=== PATIENT | female | born 1985 | race African-American/Black ===

== ENCOUNTER 2018-12-23 09:20 | Emergency (ER) | payer MEDICAID ==
[~2018-12-23] VITALS: Ht 172.7 cm; Wt 68.3 kg
[2018-12-23 10:19] LABS: CHLORIDE 110 mEq/L (98-107)
[2018-12-23 10:23] LABS: KETONES URINE TRACE (NEGATIVE); LEUKOCYTE ESTERASE URINE 1+ (NEGATIVE); NITRITE URINE NEGATIVE (NEGATIVE); OCCULT BLOOD URINE 3+ (NEGATIVE); PROTEIN URINE 3+ (NEGATIVE); SPECIFIC GRAVITY URINE 1.009 (1.005-1.030)
[2018-12-23 10:24] LABS: CLARITY URINE TURBID (CLEAR); COLOR URINE BLOODY (YELLOW)
[2018-12-23 10:34] LABS: BASOPHILS % 1.2 % (0.0-2.0); EOSINOPHILS % 1.1 % (0.0-5.0); LYMPHOCYTES % 31.1 % (20.0-50.0); MEAN CORPUSCULAR HEMOGLOBIN 32.5 pg (28.0-32.0); MEAN CORPUSCULAR VOLUME 89.1 fL (81.0-99.0); MEAN PLATELET VOLUME 7.9 fl (7.4-10.4); MONOCYTES % 13.4 % (2.0-8.0); NEUTROPHILS % 53.2 % (40.0-76.0); PLATELET 267 x1000/uL (130-400); RED BLOOD CELL COUNT 1.85 mill/uL (4.2-5.4); RED CELL DISTRIBUTION WIDTH 22.7 % (11.6-14.6)
[2018-12-23 10:41] LABS: HEMATOCRIT. 16.5 % (36.0-48.0)
[2018-12-23 10:48] LABS: B-HCG QUANTITATIVE 17500 mIU/mL (<3)
[2018-12-23 11:21] LABS: PLATELET ESTIMATE NORMAL
[2018-12-23 16:40] VITALS: BP 100/60
== END 2018-12-23 16:43 | disposition home or self-care (01) ==
LOC: ER 09:20
DX: O20.0 Threatened abortion (principal); O23.31 Infections of other parts of urinary tract in pregnancy, first trimester; Z3A.01 Less than 8 weeks gestation of pregnancy; Z88.6 Allergy status to analgesic agent; Z98.890 Other specified postprocedural states
CPT/HCPCS: 36415; 76801; 76817; 80053; 81003; 81025; 84702; 85025; 86850; 86900; 86901; 87086; 93005; 99284; Z7610

== ENCOUNTER 2021-01-16 09:32 | Inpatient (IN) | payer MEDICAID ==
[~2021-01-16] VITALS: Ht 172.7 cm; Wt 62.6 kg
[2021-01-16] MEDS ORDERED: ACETAMINOPHEN 325MG TABLET PO STA (10:08)
[2021-01-16] MEDS ORDERED: SODIUM CHLORIDE 0.9% 1000ML BAG (SEPSIS BOLUS) IV ONE (10:15)
[2021-01-16] MEDS ORDERED: KETOROLAC 15MG/ML VIAL IV ONE (10:15)
[2021-01-16 10:57] LABS: HEMATOCRIT. 22.6 % (36.0-48.0); HEMOGLOBIN. 8.3 g/dL (12.0-16.0); MEAN CORPUSCULAR HEMOGLOBIN 31.9 pg (28.0-32.0); MEAN CORPUSCULAR VOLUME 86.6 fL (81.0-99.0); MEAN PLATELET VOLUME 7.9 fl (7.4-10.4); PLATELET 290 x1000/uL (130-400); RED BLOOD CELL COUNT 2.61 mill/uL (4.2-5.4); RED CELL DISTRIBUTION WIDTH 22.9 % (11.6-14.6)
[2021-01-16 11:03] LABS: CHLORIDE 110 mEq/L (98-107)
[2021-01-16 11:05] LABS: INR 1.1; PROTHROMBIN TIME 11.5 sec (9.6-11.0)
[2021-01-16 11:06] LABS: ETHANOL BLOOD < 10 mg/dL
[2021-01-16 11:10] LABS: HCG SCREEN NEGATIVE
[2021-01-16] MEDS ORDERED: HYDROCODONE/ACETAMINOPHEN 5/325MG TABLET PO ONE (11:30)
[2021-01-16] MEDS ORDERED: HYDROMORPHONE HCL/PF 2MG/ML CPJ IV ONE ×2 (11:45→12:15)
[2021-01-16 12:15] LABS: PLATELET ESTIMATE NORMAL
[2021-01-16] MEDS ORDERED: HYDROMORPHONE HCL/PF 2MG/ML CPJ IV SCH (13:45)
[2021-01-16] MEDS ORDERED: KETOROLAC 15MG/ML VIAL IV SCH (13:45)
[2021-01-16] MEDS ORDERED: MAGNESIUM/ALUMINUM HYDROXIDE/SIMETHICONE 30ML UDC PO PRN (18:00)
[2021-01-16] MEDS ORDERED: NA PHOS,M-B/NA PHOS,DI-BA ENEMA 118ML PR PRN (18:00)
[2021-01-16] MEDS ORDERED: CLONIDINE 0.1MG TABLET PO PRN (18:00)
[2021-01-16] MEDS ORDERED: HYDROMORPHONE HCL/PF 2MG/ML CPJ IV NR (18:00)
[2021-01-16] MEDS ORDERED: OXYCODONE HCL/ACETAMINOPHEN 5/325MG TABLET PO PRN (18:00)
[2021-01-16] MEDS: DEXT 5%/0.45% NACL 1000ML 1,000 ML IV SCH (18:29)
[2021-01-16] MEDS: ENOXAPARIN 40MG/0.4ML SYR SUBCUT SCH (18:29)
[2021-01-16 18:49] LABS: CLARITY URINE CLEAR (CLEAR); COLOR URINE YELLOW (YELLOW); KETONES URINE NEGATIVE (NEGATIVE); LEUKOCYTE ESTERASE URINE TRACE (NEGATIVE); NITRITE URINE NEGATIVE (NEGATIVE); OCCULT BLOOD URINE TRACE (NEGATIVE); PH URINE 5.5 (4.5-8.0); PROTEIN URINE TRACE (NEGATIVE); SPECIFIC GRAVITY URINE 1.012 (1.005-1.030)
[2021-01-16 19:00] LABS: *AMPHETAMINES SCREEN URINE NEGATIVE (NEGATIVE); *BARBITURATES SCREEN URINE NEGATIVE (NEGATIVE); *BENZODIAZEPINES SCREEN URINE NEGATIVE (NEGATIVE); *COCAINE SCREEN URINE NEGATIVE (NEGATIVE); METHADONE URINE SCREEN NEGATIVE (NEGATIVE)
[2021-01-16] MEDS: ONDANSETRON HCL 4MG/2ML INJ IV PRN (19:00)
[2021-01-16 19:02] LABS: CANNABINOID URINE SCREEN PRESUMTIVE POSITIVE (NEGATIVE); OPIATES URINE SCREEN PRESUMTIVE POSITIVE (NEGATIVE); PHENCYCLIDINE URINE SCREEN NEGATIVE (NEGATIVE)
[2021-01-16] MEDS: HYDROMORPHONE HCL/PF 2MG/ML CPJ IV PRN ×2 (20:08→22:49)
[2021-01-16 22:00] VITALS: BP 110/69
[2021-01-16] MEDS: OXYCODONE HCL/ACETAMINOPHEN 5/325MG TABLET PO PRN (23:22)
[2021-01-17] VITALS (7 sets, daily range): BP systolic 81–112; BP diastolic 38–63
[2021-01-17] MEDS: HYDROMORPHONE HCL/PF 2MG/ML CPJ IV PRN ×5 (01:32→18:05)
[2021-01-17] MEDS ORDERED: IBUP-2029 PO (02:05)
[2021-01-17] MEDS ORDERED: FOLI0.4T6 PO (02:05)
[2021-01-17] MEDS ORDERED: HYDR-4001 MT (02:05)
[2021-01-17] MEDS: DEXT 5%/0.45% NACL 1000ML 1,000 ML IV SCH ×2 (03:33→17:33)
[2021-01-17] MEDS: OXYCODONE HCL/ACETAMINOPHEN 5/325MG TABLET PO PRN ×3 (04:21→21:37)
[2021-01-17 06:03] LABS: BASOPHILS % 0.8 % (0.0-2.0); EOSINOPHILS % 0.9 % (0.0-5.0); HEMATOCRIT. 21.9 % (36.0-48.0); HEMOGLOBIN. 7.8 g/dL (12.0-16.0); LYMPHOCYTES % 14.1 % (20.0-50.0); MEAN CORPUSCULAR HEMOGLOBIN 30.6 pg (28.0-32.0); MEAN CORPUSCULAR VOLUME 86.3 fL (81.0-99.0); MEAN PLATELET VOLUME 8.1 fl (7.4-10.4); MONOCYTES % 9.6 % (2.0-8.0); NEUTROPHILS % 74.6 % (40.0-76.0); PLATELET 237 x1000/uL (130-400); RED BLOOD CELL COUNT 2.54 mill/uL (4.2-5.4); RED CELL DISTRIBUTION WIDTH 22.4 % (11.6-14.6)
[2021-01-17 06:06] LABS: CHLORIDE 108 mEq/L (98-107)
[2021-01-17 06:15] LABS: HDL CHOLESTEROL 37 mg/dL (40-59)
[2021-01-17 06:16] LABS: LDL CHOLESTEROL 78 mg/dL (5-100)
[2021-01-17] MEDS ORDERED: ACETAMINOPHEN 325MG TABLET PO PRN (09:15)
[2021-01-17] MEDS: CEFTRIAXONE 1,000 MG in DEXTROSE 5% WATER 50 ML IV SCH (11:40)
[2021-01-17] MEDS: ENOXAPARIN 40MG/0.4ML SYR SUBCUT SCH (17:34)
[2021-01-18] VITALS: BP 89/50
[2021-01-18 04:00] VITALS: BP_SYST 88; BP_SYST 92; BP_SYST 97; BP_DIAS 37; BP_DIAS 42; BP_DIAS 49
[2021-01-18] MEDS: OXYCODONE HCL/ACETAMINOPHEN 5/325MG TABLET PO PRN ×2 (04:14→09:05)
[2021-01-18] MEDS: DEXT 5%/0.45% NACL 1000ML 1,000 ML IV SCH (04:15)
[2021-01-18 08:00] VITALS: BP 99/56
[2021-01-18] MEDS ORDERED: FOLIC ACID 1MG TABLET PO SCH (09:00)
[2021-01-18] MEDS: ONDANSETRON HCL 4MG/2ML INJ IV PRN (09:06)
[2021-01-18 12:00] VITALS: BP 131/61
[2021-01-18] MEDS: CEFTRIAXONE 1,000 MG in DEXTROSE 5% WATER 50 ML IV SCH (12:03)
[2021-01-18] MEDS ORDERED: CEPH500C2 MT (12:22)
[2021-01-18 13:08] VITALS: BP 110/60
[2021-01-18 13:52] VITALS: BP 125/70
[2021-01-18] MEDS: HYDROMORPHONE HCL/PF 2MG/ML CPJ IV PRN (13:52)
[2021-01-22 13:11] LABS: HGB F 1.6 % (0.0-2.0); HGB F Reflexed % (0.0-2.0); HGB S 95.4 % (0.0); HGB S Reflexed % (0.0)
== END 2021-01-18 15:02 | disposition home or self-care (01) | DRG 720 ==
LOC: ER 09:32 → 6WST 14:45 → EDBEDREQSVC 18:29 → ENRESERV 19:53
PROVIDERS: ADMIT Family Medicine; ATTEND Family Medicine
DX: A41.9 Sepsis, unspecified organism (principal); D57.00 Hb-SS disease with crisis, unspecified; N39.0 Urinary tract infection, site not specified; Z88.5 Allergy status to narcotic agent; Z98.891 History of uterine scar from previous surgery; Z82.49 Family history of ischemic heart disease and other diseases of the circulatory system
CPT/HCPCS: 36415; 71045; 80053; 80061; 80305; 80320; 81003; 83021; 83605; 83880; 84145; 84484; 84703; 85025; 85044; 85660; 93005; 99285; J0696; J1170; J1650; J1885; J2405; J7030; J7060; G0480

== ENCOUNTER 2021-07-17 16:50 | Emergency (ER) | payer MEDICAID ==
[~2021-07-17] VITALS: Ht 172.7 cm; Wt 57.0 kg
[~2021-07-17 16:50] MED LIST: CEPH500C2 MT; FOLI0.4T6 PO; HYDR-4001 MT; IBUP-2029 PO
[2021-07-17 16:53] VITALS: BP 108/64
== END 2021-07-17 18:58 | disposition left against medical advice (07) ==
LOC: ER 16:50
DX: M79.662 Pain in left lower leg (principal); M79.661 Pain in right lower leg; D57.1 Sickle-cell disease without crisis

== ENCOUNTER 2022-09-05 16:59 | Emergency (ER) | payer MEDICAID, OTHER ==
[~2022-09-05] VITALS: Ht 165.1 cm; Wt 59.0 kg
[2022-09-05] MEDS ORDERED: ONDANSETRON HCL 4MG/2ML INJ IV STA ×2 (17:51→20:13)
[2022-09-05] MEDS ORDERED: MORPHINE SULFATE 4 MG/ML CPJ (NOT FOR IM USE) IV STA ×2 (17:51→20:13)
[2022-09-05] MEDS ORDERED: SODIUM CHLORIDE 0.9% 1,000 ML IV ONE (18:00)
[2022-09-05] MEDS ORDERED: DIPHENHYDRAMINE 50MG/ML VIAL IV ONE ×2 (18:00→20:15)
[2022-09-05 18:29] VITALS: BP 113/61
[2022-09-05 18:29] LABS: BASOPHILS % 1.1 % (0.0-2.0); EOSINOPHILS % 0.2 % (0.0-5.0); HEMATOCRIT. 23.7 % (36.0-48.0); HEMOGLOBIN. 8.4 g/dL (12.0-16.0); LYMPHOCYTES % 13.3 % (20.0-50.0); MEAN CORPUSCULAR HEMOGLOBIN 29.9 pg (28.0-32.0); MEAN CORPUSCULAR VOLUME 83.9 fL (81.0-99.0); MEAN PLATELET VOLUME 7.5 fl (7.4-10.4); MONOCYTES % 6.3 % (2.0-8.0); NEUTROPHILS % 79.1 % (40.0-76.0); PLATELET 313 x1000/uL (130-400); RED BLOOD CELL COUNT 2.82 mill/uL (4.2-5.4); RED CELL DISTRIBUTION WIDTH 24.4 % (11.6-14.6)
[2022-09-05 18:39] LABS: CHLORIDE 109 mEq/L (98-107)
[2022-09-05 18:50] LABS: HCG SCREEN NEGATIVE
[2022-09-05 19:33] LABS: PLATELET ESTIMATE NORMAL
== END 2022-09-05 23:25 | disposition left against medical advice (07) ==
LOC: ER 16:59
DX: D57.00 Hb-SS disease with crisis, unspecified (principal); D72.829 Elevated white blood cell count, unspecified; Z20.822 Contact with and (suspected) exposure to COVID-19; Z98.890 Other specified postprocedural states; Z88.5 Allergy status to narcotic agent
CPT/HCPCS: 36415; 71045; 71046; 80053; 84703; 85025; 85044; 93005; 96361; 96374; 96375; 96376; 99285; J1200; J2270; J2405; J7030; Z7610

== ENCOUNTER 2024-06-16 15:27 | Emergency (ER) | payer MEDICAID, OTHER ==
[~2024-06-16] VITALS: Ht 175.3 cm; Wt 70.0 kg
[2024-06-16 15:29] VITALS: O2SAT 98
[2024-06-16] MEDS ORDERED: HYDROMORPHONE HCL/PF 2MG/ML INJ IV ONE ×2 (16:00→17:30)
[2024-06-16 16:11] LABS: CARBON DIOXIDE 23 mEq/L (21-32); CHLORIDE 105 mEq/L (98-107); POTASSIUM 3.6 mEq/L (3.5-5.1); SODIUM 135 mEq/L (136-145)
[2024-06-16 16:12] LABS: CALCIUM 9.2 mg/dL (8.7-10.4)
[2024-06-16 16:13] LABS: BASOPHILS % 1.1 % (0.0-2.0); EOSINOPHILS % 0.2 % (0.0-5.0); HEMATOCRIT. 25.4 % (36.0-48.0); HEMOGLOBIN. 9.2 g/dL (12.0-16.0); LYMPHOCYTES % 18.5 % (20.0-50.0); MEAN CORPUSCULAR HEMOGLOBIN 31.2 pg (28.0-32.0); MEAN CORPUSCULAR HGB CONC 36.4 g/dL (31.0-37.0); MEAN CORPUSCULAR VOLUME 85.7 fL (81.0-99.0); NEUTROPHILS % 72.2 % (40.0-76.0); PLATELET 338 x1000/uL (130-400); RED BLOOD CELL COUNT 2.96 mill/uL (4.2-5.4); RED CELL DISTRIBUTION WIDTH 22.6 % (11.6-14.6); WHITE BLOOD COUNT 14.2 x1000/uL (4.5-11.0)
[2024-06-16 16:15] LABS: DIFFERENTIAL COMMENT 1; HCG SCREEN NEGATIVE
[2024-06-16 16:17] LABS: CREATININE 0.6 mg/dL (0.6-1.0); GLUCOSE 119 mg/dL (70-105); UREA NITROGEN BLOOD 11 mg/dL (9-23)
[2024-06-16 16:18] LABS: ALANINE AMINOTRANSFERASE 14 IU/L (10-49); ASPARTATE AMINOTRANSFERASE 33 IU/L (<34)
[2024-06-16 16:19] LABS: ALBUMIN 4.2 g/dL (3.2-4.8); BILIRUBIN DIRECT 0.6 mg/dL (<=3.0); CREATINE KINASE 96 IU/L (34-145); PROTEIN TOTAL 7.8 g/dL (6.0-8.3)
[2024-06-16] MEDS: HYDROMORPHONE HCL/PF 1MG/ML INJ IV NR (16:20)
[2024-06-16] MEDS: DIPHENHYDRAMINE 50MG/ML VIAL IV ONE (16:20)
[2024-06-16] MEDS: SODIUM CHLORIDE 0.9% 1,000 ML IV ONE ×2 (17:29→20:43)
[2024-06-16] MEDS: HYDROMORPHONE HCL/PF 1MG/ML INJ IV SCH (17:46)
[2024-06-16] MEDS ORDERED: ONDANSETRON HCL 4MG/2ML INJ IV PRN (20:15)
[2024-06-16] MEDS: FOLIC ACID/VITAMIN B COMP W-C TABLET PO SCH (20:44)
[2024-06-16] MEDS: HYDROMORPHONE HCL/PF 1MG/ML INJ IV PRN (20:45)
[2024-06-16 22:50] VITALS: BP 124/72; PULSE 77; RESP 14; TEMP 36.94740; O2SAT 100
== END 2024-06-16 23:07 | disposition short-term general hospital (02) ==
LOC: ER 15:27 → EDBEDREQTM 20:15 → EDBEDREQ 20:15 → ER 23:07
DX: D57.00 Hb-SS disease with crisis, unspecified (principal); D57.1 Sickle-cell disease without crisis
CPT/HCPCS: 80076; 80048; 82550; 84703; 85025; 85044; 86850; 86900; 86901; 36415; 96361; 96374; 96375; 96376; 99285; J1200; J1171; J7030; Z7610; 96365; 96366; 99284